=== PATIENT | female | born 1945 | race Caucasian/White ===

== ENCOUNTER 2018-06-03 21:48 | Emergency (ER) | payer OTHER, SELFPAY ==
[2018-06-03 22:04] VITALS: BP 168/78; PULSE 75; RESP 18; TEMP 36.8; O2SAT 99
--- NOTE | 2018-06-04 00:18 | ED.GENADUL_ITS ---
Discharge Plan Disposition Patient Disposition: HOME Condition: Good Discharge Details Chief Complaint: Orthopedic Clinical Impression: Injury of left shoulder Primary Care Provider: Sonal Nieto ED Provider: Vernon Titus [place] Meds and New Rx's Prescriptions: Continue metoprolol succinate 50 MG tablet extended release 24 hr 50 mg PO BID RF: 0 glipizide [Glucotrol XL] 10 MG tablet extended release 24hr 10 mg PO DAILY RF: 0 lysine 1,000 MG tablet 1,000 mg PO DAILY RF: 0 cranberry conc-ascorbic acid [Cranberry Concentrate] 1 EACH capsule 1 ea PO BID RF: 0 amlodipine 5 MG tablet 5 mg PO HS RF: 0 calcium carbonate-vitamin D3 1 EACH tablet 1 ea PO BID RF: 0 simvastatin 20 MG tablet 20 mg PO DAILY RF: 0 ascorbate calcium 500 MG tablet 500 mg PO TID RF: 0 losartan 100 MG tablet 100 mg PO HS RF: 0 cinnamon bark 500 MG capsule 500 mg PO DAILY RF: 0 nizxwzxv-zxe-WF-lycopen-lutein [Centrum Silver] 1 EACH tablet 1 ea PO DAILY RF: 0 Ca cmb no.1-vit Q8-P8-DI-B12 [Vitamin D3 (calcium cit-phos)] 1 EACH tablet 1 ea PO BID RF: 0 estradiol [Estrace] 42.5 GM cream 42.5 gm VG DAILY Qty: 1 RF: 12 latanoprost [Xalatan] 2.5 ML drops 1 drp Ophthalmic DAILY RF: 0 dorzolamide-timolol 10 ML drops 1 drp Ophthalmic BID RF: 0 vitamin B complex [B-Complex] 1 EACH tablet 1 ea PO DAILY RF: 0 cholecalciferol (vitamin D3) [Vitamin D3] 400 UNIT tablet 400 unit PO DAILY RF: 0 Discharge Instructions Additional Instructions: With a sling for comfort but start doing range of motion exercises within the next couple of days. Ice on and off of the next few days. Tylenol or Motrin as needed for pain. Follow-up with primary care next week if still having significant pain. Return to ED for numbness or weakness of the arm, difficulty breathing, other problems. Stand Alone Forms: Work Release Referrals: Sonal Nieto MD [Primary Care Provider] - Discharge Data Discharge Date/Time-TO BE ENTERED AT DEPARTURE: 06/04/18 01:49 Medical Decision Making Patient given Tylenol for pain. She declined anything else. X-ray of the left shoulder obtained. There is no evidence of fracture or dislocation. Possibility of rotator cuff injury to entertained. She is placed in sling for comfort. She is told to use ice on and off for the next few days. She may use Tylenol or Motrin for pain. She is referred to primary care if not better next week. Return to ED for any neurovascular changes. HPI General Mode of arrival: ambulatory . Date/Time Provider Initiated Documentation: 06/03/18 22:24 . Limitations to Documentation: no limitations . Information obtained by: patient . HPI Narrative: Patient presents to ED with left shoulder pain status post slip and fall while coming out of work. She did not strike her head. She has no posterior neck pain. She has a little bit of lateral neck pain. Most of her discomfort is in her left shoulder and she is unable to lift or move her arm well. She denies any numbness or weakness distally. She denies any chest pain , back pain, shortness of breath. She is ambulatory without difficulty. Related Data Home Medications Medication Instructions Recorded Confirmed Ca cmb no.1-vit V2-F8-HE-B12 1 ea PO BID 11/27/13 05/17/17 [Vitamin D3 (calcium cit-phos)] amlodipine 5 mg PO HS tab-cap 11/27/13 05/31/17 ascorbate calcium 500 mg PO TID 11/27/13 05/31/17 calcium carbonate-vitamin D3 1 ea PO BID 11/27/13 05/31/17 cinnamon bark 500 mg PO DAILY 11/27/13 05/31/17 cranberry conc-ascorbic acid 1 ea PO BID 11/27/13 05/31/17 [Cranberry Concentrate] estradiol [Estrace] 42.5 gm VG DAILY #1 tube 11/27/13 glipizide [Glucotrol XL] 10 mg PO DAILY tab-cap 11/27/13 05/31/17 losartan 100 mg PO HS tab-cap 11/27/13 05/31/17 lysine 1,000 mg PO DAILY 11/27/13 05/31/17 metoprolol succinate 50 mg PO BID tab-cap 11/27/13 05/31/17 simbmiow-lct-HE-lycopen-lutein 1 ea PO DAILY 11/27/13 05/31/17 [Centrum Silver] simvastatin 20 mg PO DAILY tab-cap 11/27/13 05/31/17 dorzolamide-timolol 1 drp OPHTHALMIC BID drp 05/18/16 05/31/17 latanoprost [Xalatan] 1 drp OPHTHALMIC DAILY drp 05/18/16 05/31/17 cholecalciferol (vitamin D3) 400 unit PO DAILY 05/14/17 05/31/17 [Vitamin D3] vitamin B complex [B-Complex] 1 ea PO DAILY 05/14/17 05/31/17 Allergies Allergy/AdvReac Type Severity Reaction Status Date / Time nifedipine [From Procardia] Allergy Intermediate rash Unverified 06/03/18 22:10 Penicillins Allergy Unverified 06/03/18 22:10 hydrochlorothiazide AdvReac peeling Unverified 06/03/18 22:10 [From Aldactazide] nipples potassium chloride AdvReac swelling Unverified 06/03/18 22:10 feet and ankles prednisone AdvReac phlebitis Unverified 06/03/18 22:10 spironolactone AdvReac peeling Unverified 06/03/18 22:10 [From Aldactazide] nipples General Stated Complaint: Orthopedic OLIVER: 4 Review of Systems Constitutional Denies headache(s) and Denies weakness ENT Denies facial pain, Denies headache(s), Denies epistaxis, Denies nasal trauma and Denies neck pain Cardiovascular Denies chest pain and Denies dyspnea Respiratory Denies dyspnea Gastrointestinal Denies nausea and Denies vomiting Musculoskeletal Denies back pain, Reports arthralgias, Denies neck pain and Denies numbness Integumentary/Breasts Denies wounds Neurologic Denies headache(s), Denies focal weakness, Denies numbness and Denies weakness [facility] Medical History ASCUS with positive high risk HPV Atrophic vaginitis Diabetes mellitus Essential hypertension Gout Hyperlipidemia Lichen sclerosus et atrophicus Social History Smoking/Tobacco Use Status: Never Surgical History Colonoscopy - IV Sedation Ligation of fallopian tube Tonsillectomy mastoidectomy varicose vein stripping Exam Const General: cooperative Orientation: alert and oriented x3 HENMT Head: normocephalic and atraumatic Neck Neck: normal visual inspection, trachea midline and supple Chest Chest: normal palpation of entire chest wall Resp Effort & Inspection: normal respiratory effort Auscultation: clear to auscultation bilaterally Cardio Rate: regular rate Rhythm: regular rhythm Heart Sounds: S1 normal and S2 normal Pulses: radial pulses present Back/Spine/Pelvis Cervical Spine: cervical ROM normal and No cervical spinal tenderness Neuro General: alert, oriented x3, CN's II-XI intact bilaterally and normal sensation to monofilament Sensory Exam: no sensory deficits noted Extrem Left upper extremity: normal to inspection, normal capillary refill and shoulder /upper arm Details: tenderness Location: of the proximal humerus and abnormal ROM Course Vital Signs Temperature 98.2 F 06/03/18 22:04 Pulse 75 06/03/18 22:04 Respiratory Rate 18 06/03/18 22:04 Blood Pressure 168/78 H 06/03/18 22:04 Pulse Oximetry 99 06/03/18 22:04 Temperature 98.2 F 06/03/18 22:04 Temperature Source Skin 06/03/18 22:04 Pulse 75 06/03/18 22:04 Respiratory Rate 18 06/03/18 22:04 Respiratory Effort Non-Labored 06/03/18 22:09 Blood Pressure 168/78 H 06/03/18 22:04 Blood Pressure Position Sitting 06/03/18 22:04 Pulse Oximetry 99 06/03/18 22:04 Oxygen Delivery Method Room Air 06/03/18 22:04 Oxygen Flow Rate 0 06/03/18 22:04 Pain Level 10 06/03/18 22:04 Comment 06/03/18 22:04
[2018-06-04] MEDS: Acetaminophen 500 MG TAB 1000 MG PO (00:19)
--- NOTE | 2018-06-04 00:45 | DI.RAD_ITS ---
SYMPTOMS/DIAGNOSIS: TRAUMA LEFT SHOULDER: No fracture or dislocation is seen. There is some spurring at the glenoid and tip of the acromion. IMPRESSION: Degenerative changes. No acute abnormality.
--- NOTE | 2018-06-04 01:11 | DI.VRAD_ITS ---
EXAM: XR Left Shoulder Complete, 2 or More Views CLINICAL HISTORY: 73 years old, female; Injury or trauma; Fall; Initial encounter; Blunt trauma (contusions or hematomas; Shoulder; Left; Injury date: 06/03/18; Injury details: Fall with left shoulder pain and limited range of motion. ; Additional info: Unable to do axillary view due to pain TECHNIQUE: Two or more views of the left shoulder. COMPARISON: No relevant prior studies available. FINDINGS: Bones/joints: Unremarkable. No acute fracture. No dislocation. Soft tissues: Unremarkable. IMPRESSION: Normal left shoulder x-rays. Dictated and Authenticated by: Martin Torres MD. Ordering:VISHAL ACOSTA MD
[2018-06-04 01:50] VITALS: BP 162/82; PULSE 85; RESP 16; O2SAT 97
== END 2018-06-04 01:49 | disposition home or self-care (01) ==
PROVIDERS: Emergency Provider Emergency Medicine; PCP Family Medicine
DX: S49.92XA Unspecified injury of left shoulder and upper arm, initial encounter (principal); W01.0XXA Fall on same level from slipping, tripping and stumbling without subsequent striking against object, initial encounter; E11.9 Type 2 diabetes mellitus without complications; Z79.84 Long term (current) use of oral hypoglycemic drugs; I10 Essential (primary) hypertension
CPT/HCPCS: 99283; 73030; L3650

== ENCOUNTER 2018-06-10 09:53 | Outpatient (CLI) | payer OTHER, SELFPAY ==
[2018-06-10 10:24] LABS: Hemoglobin A1C 7.9 % (4.5-6.2)
[2018-06-10 11:07] LABS: Anion Gap 9.4 mmol/L (3-11); BUN 16 mg/dL (7-18); CO2 29.6 mmol/L (21.0-32.0); CREATININE 0.77 mg/dL (0.55-1.02); Calcium 9.6 mg/dL (8.5-10.1); Chloride 100 mmol/L (98-107); Cholesterol 221 mg/dL (50-200); Glucose 194 mg/dL (70-100); HDL Cholesterol 63 mg/dL (40-60); LDL CHOLESTEROL 128 mg/dL (<100); Potassium 4.1 mmol/L (3.5-5.1); Sodium 139 mmol/L (136-145); Triglyceride 151 mg/dL (30-150)
== END 2018-06-10 10:13 ==
PROVIDERS: PCP Family Medicine; Visit Provider Family Medicine
DX: E11.9 Type 2 diabetes mellitus without complications (principal); E78.5 Hyperlipidemia, unspecified
CPT/HCPCS: 36415; 80048; 80061; 83721; 83036

== ENCOUNTER 2018-09-19 09:45 | Outpatient (REF) | payer OTHER, SELFPAY ==
[2018-09-19 13:28] LABS: Microalb ug/mg Crea 19.9 ug/mg Cr
== END 2018-09-19 10:05 ==
LOC: NCHCN 09:45
PROVIDERS: PCP Family Medicine; Visit Provider Family Medicine
DX: E11.9 Type 2 diabetes mellitus without complications (principal)
CPT/HCPCS: 82043; 82570

== ENCOUNTER 2018-10-03 08:58 | Outpatient (CLI) | payer OTHER, SELFPAY | END 2018-10-03 09:18 | PROVIDERS: PCP Family Medicine; Visit Provider Student in an Organized Health Care Education/Training Program | DX: S46.012A Strain of muscle(s) and tendon(s) of the rotator cuff of left shoulder, initial encounter (principal); M25.512 Pain in left shoulder; Z01.818 Encounter for other preprocedural examination ==

== ENCOUNTER 2018-10-07 08:12 | Day surgery (SDC) | payer OTHER, SELFPAY ==
[2018-10-07] VITALS (8 sets, daily range): BP systolic 93–151; BP diastolic 43–79; PULSE 62–82; RESP 15–23; TEMP 36.2–36.6; O2SAT 95–99
[2018-10-07] MEDS: Lactated Ringers 1,000 ML 80 ML IV ×2 (08:53→13:49)
[2018-10-07] MEDS: Bupivacaine LIPOSOME/PF 133 MG/10 ML VIAL IJ ×2 (09:50→12:57)
[2018-10-07] MEDS: Bupivacaine 0.5% Pres-Free 30 ML VIAL (09:50)
[2018-10-07] MEDS: Bupivacaine 0.25% Pres-Free 30 ML VIAL (12:58)
--- NOTE | 2018-10-07 13:10 | PDOC.DSDIS_ITS ---
Discharge Plan Disposition Patient Disposition: HOME Condition: Good Discharge Details Reason For Visit: L RTC Repair Attending Provider: Noah Palacios Primary Care Provider: Sonal Nieto Home Meds and New Rx's Prescriptions: New celecoxib 200 mg capsule 200 mg PO BID PRN (Reason: pain) Qty: 60 RF: 1 acetaminophen 500 mg tablet 1,000 mg PO Q8H PRN (Reason: pain) Qty: 90 RF: 3 oxycodone 5 mg tablet 5 mg PO Q4H Qty: 18 RF: 0 Continued metoprolol succinate 50 MG tablet extended release 24 hr 50 mg PO BID RF: 0 glipizide [Glucotrol XL] 10 MG tablet extended release 24hr 10 mg PO DAILY RF: 0 lysine 1,000 MG tablet 1,000 mg PO DAILY RF: 0 Cranberry Concentrate 1 EACH capsule 1 ea PO BID RF: 0 amlodipine 5 MG tablet 5 mg PO HS RF: 0 calcium carbonate-vitamin D3 1 EACH tablet 1 ea PO BID RF: 0 simvastatin 20 MG tablet 20 mg PO DAILY RF: 0 ascorbate calcium 500 MG tablet 500 mg PO TID RF: 0 losartan 100 MG tablet 100 mg PO HS RF: 0 cinnamon bark 500 MG capsule 500 mg PO DAILY RF: 0 Centrum Silver 1 EACH tablet 1 ea PO DAILY RF: 0 Vitamin D3 (calcium cit-phos) 1 EACH tablet 1 ea PO BID RF: 0 estradiol [Estrace] 42.5 GM cream 42.5 gm VG PRN PRNQty: 1 RF: 12 latanoprost [Xalatan] 2.5 ML drops 1 drp Ophthalmic DAILY RF: 0 dorzolamide-timolol 10 ML drops 1 drp Ophthalmic BID RF: 0 vitamin B complex [B-Complex] 1 EACH tablet 1 ea PO DAILY RF: 0 cholecalciferol (vitamin D3) [Vitamin D3] 400 UNIT tablet 400 unit PO DAILY RF: 0 Discharge Instructions Stand Alone Forms: Philip fitzpatrick/RCKrystle Referrals: Noah Palacios MD [ [facility] STAFF PHYSICIAN] - Equipment/Supplies: Sling Activity:: Stay in sling except for hygiene Remove Dressings/Wound Care:: 72 hours Shower/Bathe:: 72 hours Diet:: Carb Counting Discharge Orders Discharge Orders: Discharge Order (Routine); Ordered 10/07/18 Ordered By: Noah Palacios DS: Diagnosis Discharge Diagnosis (1) Tear of left rotator cuff: Status: Acute
[2018-10-07] MEDS: Insulin REGULAR-Human 100 UNITS/ML UNIT IV (13:46)
--- NOTE | 2018-10-09 08:39 | ROE_ITS ---
Date of service: 10/07/18 Time of Service: 13:34 Operative Note DATE OF PROCEDURE: 10/07/18 PRE-OP DIAGNOSIS: Left Rotator Cuff Tear POST-OP DIAGNOSIS: same PROCEDURE: Arthroscopic Rotator Cuff Repair SURGEON: Noah Palacios [employer] ADMINISTRATOR: Christine Suggs ANESTHESIA: GETA and regional ESTIMATED BLOOD LOSS: 0 PATHOLOGY: none sent COMPLICATIONS: None Patient was transported to: PACU Patient's condition: stable Indications: I have seen Mildred in clinic for a painful shoulder. Pathology was confirmed based on MRI and exam findings. Nonoperative measures were exhausted but disability and pain persisted. I discussed shoulder arthroscopy and procedures. I reviewed the risks of the procedures to include, but not limited to, bleeding, infection, pain, stiffness, damage to nerves or vessels, recurrence, hardware failure, blood clot. Despite these risks, the patient elected to proceed. Findings: A diagnostic arthroscopy was performed with the following findings: - Glenohumeral Joint: There is a focal arthritic changes especially seen within the central posterior portion of the humeral head and within the central portion of the glenoid. There are quite focal grade 2/3 changes with no exposed bone. In general the joint was very difficult to maneuver and is there is severe inflammatory change seen throughout the entirety of the glenohumeral joint hiding and masking the normal anatomy. - Labrum: Some fraying of the labrum was seen from anterior posterior approximately 1030-30. The biceps was not present in the anchor was therefore not evaluated. - Cuff: Complete tearing of the supraspinatus and a portion of infraspinatus was appreciated. The inferior aspect the subscapularis still attached. The coracohumeral ligament and the upper portion of subscapularis was retracted medial to the glenoid and encased inflammatory tissue. - Biceps: There is no biceps within the glenohumeral joint. - Subacromial: Significant inflammation without significant anterolateral spurring Procedure Description: Mildred was greeted in the preoperative holding area where the correct side was identified and marked. The consent was reviewed with the patient and signed. The history and physical was updated. All questions were answered. Mildred was taken back to the PACU for administration of an intrascalene nerve block. She was then taken to the operating room. The patient was placed into the supine position on the operating room table. A general anesthetic was administered. Mildred was then positioned in the beach chair position. All bony prominences were well padded. The head was placed in a foam chiseler head in a neutral position. Prophylactic antibiotics in the form of [Cefazolin] were administered. The left arm/shoulder was then prepped with Chloraprep and draped in a standard fashion with stockinette and shoulder drape. A timeout to confirm correct identity, side and site, procedure, allergies, anesthesia, and medical concerns was performed. The arm was placed into a pneumatic azar, [id number]. The shoulder arthroscopy was then performed. The glenohumeral joint was injected with 20 cc of normal saline with good flow back. A standard posterior portal was made and the joint was entered atraumatically with a blunt arthroscope. Once inside we had good visualization of the structures of the glenohumeral joint. An anterior portal was established with spinal needle localization. A 6.5 mm cannula was inserted. A probe was then used to perform a diagnostic arthroscopy. There is noted to be some areas of focal grade 2/3 changes of the central glenoid and the central posterior portion of the humeral head. The labrum was frayed from about 1030-230 but was grossly intact. There were [no loose bodies] in the inferior pouch. The superior rotator cuff was completely torn and retracted just medial to the level of the glenoid including portion of the infra spinatus. The subscapularis is difficult to appreciate. The entire rotator interval was inflamed and scarred. The coracohumeral ligament was seen as a tight band which was able to identify the upper portion of subscapularis with difficulty. The lower portion was still attached.. The biceps tendon appears a torn and was not present. The labrum was debrided down to stable base. The inflammatory changes seen anteriorly within the rotator interval and also superiorly around the rotator cuff and over the greater tuberosity was debrided down. The arthroscope was then inserted into the subacromial space. The 6.5 mm cannula was placed lateral to the CA ligament. A complete bursectomy is performed anteriorly, posteriorly, and laterally with electrocautery and shaver. This had excellent exposure of the greater tuberosity and the torn superior rotator cuff. Using a spinal needle two lateral portals were established. These became the working and viewing portals. The visualization of the subscapularis tendon was still quite difficult. With the scope in the lateral portal was able to get better visualization of the scarred and subscapularis tendon. The coracohumeral ligament was identified to help find the upper portion of subscapularis tendon. Using a tissue grasper, this tissue was able to mobilize in the upper portion of subscapularis tendon was better identified. The inferior portions were still attached. The mobility is quite limited. I used both the shaver and a liberator to free up the subscapularis tendon both anteriorly and posteriorly. I placed a single 4.5 mm Healix anchor into the lesser tuberosity after debriding the lesser tuberosity. I placed a tension suture into the subscapularis tendon. This allowed the tendon to be pulled all the way to the lesser tuberosity. I was able to place a single horizontal mattress suture within the substance of the subscapularis tendon using a retrograde suture passer device, espresso. This was able to nicely bring back the subfibular stent into the less tuberosity which in turn also help reduce some of the superior rotator cuff. Unfortunately, I seemed to run out of space within the tendon and I was nervous about locking the sutures and therefore did not place a secondary suture and left one horizontal mattress suture. This was then tied through the anterior portal using standard arthroscopic knot tying techniques, again with excellent reapproximation of the tendon to the lesser tuberosity. It was tested up to 45 degrees of external rotation and was noted to be stable. Attention was then turned to the superior rotator cuff. Again, this was scarred and quite adherent both to the acromion and also to the superior glenoid area. Using light cautery, shaver, and a liberator, I was able to free up the tendon. It was mobile to the level of the greater tuberosity. However, it was unable to be brought all the way over the tuberosity. Therefore I proceeded with a medial row only repair. 2 Medial Row anchors were placed. These were 4.5 mm Healix anchors. [address] in [address] within the tendon of the rotator cuff, primarily supra spinatus and a portion of the infra spinatus. The tendon was brought from posterior to anterior direction and laid onto the greater tuberosity. Again, the tendon was brought to the tuberosity but was unable to be brought all the way over the tuberosity. Prior to placing those anchors the greater tuberosity was debrided with a shaver and slightly medialized. After placement of the mattress sutures, these were tied using standard arthroscopic knot tying techniques. Showed excellent reapproximation of the tendon down to the tuberosity. The scope equipment was removed from the shoulder. Excess fluid was evacuated. The portal sites were closed with 3-0 Monocryl. The wounds were dressed with Steri-Strips, 4 x 4's, ABDs, Medipore tape. A sling was applied. The patient tolerated the procedure well and was returned to the Same Day Surgery area in a stable condition suffering no known complication.
== END 2018-10-07 16:30 | disposition home or self-care (01) ==
PROVIDERS: PCP Family Medicine; Visit Provider Student in an Organized Health Care Education/Training Program
PROC: (CPT 29827; principal; 2018-10-07 09:45)
DX: M75.122 Complete rotator cuff tear or rupture of left shoulder, not specified as traumatic (principal); M19.012 Primary osteoarthritis, left shoulder; E11.9 Type 2 diabetes mellitus without complications; K21.9 Gastro-esophageal reflux disease without esophagitis
CPT/HCPCS: 29827; 64415; 76942; J2250; L3670

== ENCOUNTER → 2018-10-20 09:51 | Outpatient (BNVA) | payer OTHER, SELFPAY | PROVIDERS: PCP Family Medicine; Referring Provider Family Medicine; Visit Provider Student in an Organized Health Care Education/Training Program | DX: Z47.89 Encounter for other orthopedic aftercare (principal); M75.102 Unspecified rotator cuff tear or rupture of left shoulder, not specified as traumatic ==

== ENCOUNTER → 2018-11-17 10:27 | Outpatient (BNVA) | payer OTHER, SELFPAY | PROVIDERS: PCP Family Medicine; Referring Provider Family Medicine; Visit Provider Student in an Organized Health Care Education/Training Program | DX: R69 Illness, unspecified (principal) ==

== ENCOUNTER → 2018-12-15 14:25 | Outpatient (BNVA) | payer OTHER, SELFPAY | PROVIDERS: PCP Family Medicine; Referring Provider Family Medicine; Visit Provider Student in an Organized Health Care Education/Training Program | DX: M75.122 Complete rotator cuff tear or rupture of left shoulder, not specified as traumatic (principal); Z47.89 Encounter for other orthopedic aftercare ==

== ENCOUNTER 2019-01-12 10:21 | Outpatient (CLI) | payer OTHER, SELFPAY ==
--- NOTE | 2019-01-12 10:07 | DI.RAD_ITS ---
SYMPTOM/DIAGNOSIS: F/U LT ROTATOR CUFF TEAR, CONTINUED WEAKNESS LEFT SHOULDER: Three views were obtained. There are moderate hypertrophic degenerative changes of the AC joint and glenohumeral joint. No other significant bony or soft tissue abnormality is seen.
== END 2019-01-12 10:41 ==
PROVIDERS: PCP Family Medicine; Visit Provider Student in an Organized Health Care Education/Training Program
DX: M75.122 Complete rotator cuff tear or rupture of left shoulder, not specified as traumatic (principal); M19.012 Primary osteoarthritis, left shoulder
CPT/HCPCS: 73030

== ENCOUNTER 2019-07-02 02:17 | Outpatient (CLI) | payer OTHER, SELFPAY ==
--- NOTE | 2019-07-02 10:26 | DI.MAMMO_ITS ---
EXAM: MG MAMMO SCREENING CLINICAL HISTORY: SCREENING BREAST CANCER Z12.39 TECHNIQUE: Bilateral full field digital CC and MLO mammographic images were obtained with 3D tomosyn thesis and utilizing computer aided detection (CAD). COMPARISON: Available for comparison. FINDINGS: Masses/Architectural Distortion: None seen. Microcalcifications: No suspicious pleomorphic-type are seen. Skin Thickening/Nipple Retraction: None. IMPRESSION: 1. No significant interval change with no specific features of malignancy noted. 2. Unless there is more urgent need, screening mammography is recommended, as per [place] [employer] guidelines. ACR BI-RAD Category- 1 Negative Breast Density - Category B - Scattered areas of fibroglandular density A negative radiographic report should not delay biopsy if a dominant or clinically suspicious mass is present. Up to ten percent of cancers are not identified on mammography. A negative report may reinforce clinical impression. Adenosis and dense breasts may obscure an underlying neoplasm. False positive reports average 6 to 10%. Patient will receive a letter notifying them of these results.
== END 2019-07-02 02:37 ==
PROVIDERS: PCP Family Medicine; Visit Provider Family Medicine
DX: Z12.31 Encounter for screening mammogram for malignant neoplasm of breast (principal)
CPT/HCPCS: 77063; 77067

== ENCOUNTER 2020-08-19 15:42 | Outpatient (REF) | payer OTHER, SELFPAY ==
[2020-08-22 13:10] LABS: HSV 1 DNA Result Positive (Negative); HSV 2 DNA Result Negative (Negative)
== END 2020-08-19 16:02 ==
LOC: LBN 15:42
PROVIDERS: PCP Family Medicine; Visit Provider Obstetrics & Gynecology Gynecology
DX: N90.89 Other specified noninflammatory disorders of vulva and perineum (principal)
CPT/HCPCS: 87529

== ENCOUNTER 2020-10-21 15:16 | Outpatient (REF) | payer OTHER, SELFPAY ==
[2020-10-24 15:46] LABS: Chlamydia Result Negative (Negative); GC Result Negative (Negative)
== END 2020-10-21 15:17 | disposition home or self-care (01) ==
LOC: LBN 15:16
PROVIDERS: PCP Family Medicine; Visit Provider Obstetrics & Gynecology Gynecology
DX: N94.89 Other specified conditions associated with female genital organs and menstrual cycle (principal); Z11.3 Encounter for screening for infections with a predominantly sexual mode of transmission
CPT/HCPCS: 87491; 87591; 87480; 87510; 87660

== ENCOUNTER 2021-01-04 16:18 | Outpatient (REF) | payer OTHER, SELFPAY ==
--- NOTE | 2021-01-04 13:45 | PAPFT_PTH ---
PATIENT: Mildred Hill LOC: [facility]#:[id number] AGE/SX: 75/F ROOM: RE01/04/[address]: Sonal Nieto : 1945 BED: DIS: 01/04/2021 SPEC #: [id number] RECD: 01/04/21 17:59 STATUS: GAYLE REJose #: [id number] URIEL: 01/04/21 13:[address]: Sonal Nieto DEPT: [facility] Cytology RECD BY: Rosalva Jaquez Tissues: 1 - CX/ENDOCX FOR PAP SMEARS Procedures: PAP THIN PREP/UVM Screening HPV DNA PROBE Comments: [id number]
[2021-01-04 18:32] LABS: HCT 41.2 % (36.0-46.0); HGB 13.8 g/dL (11.2-15.7); MCH 30.7 pg (27.0-33.0); MCHC 33.5 % (32.0-36.0); MCV 91.6 fL (80-95); MPV 11.4 fL (8.0-11.0); Platelet Count 234 10^3/uL (130-400); WBC 6.16 10^3/uL (4.4-10.8)
[2021-01-04 18:44] LABS: Hemoglobin A1C 11.8 % (<5.7)
[2021-01-04 18:57] LABS: ALT 18 U/L (14-59); AST 10 U/L (15-37); Albumin 3.8 g/dL (3.4-5.0); Alkaline Phosphatase 70 U/L (46-116); Anion Gap 9.4 mmol/L (3-11); BUN 16 mg/dL (7-18); Bilirubin, Total 0.5 mg/dL (0.2-1.0); CO2 28.6 mmol/L (21.0-32.0); CREATININE 0.8 mg/dL (0.55-1.02); Calcium 9.5 mg/dL (8.5-10.1); Calculated LDL 77 mg/dL (<100); Chloride 99 mmol/L (98-107); Cholesterol 211 mg/dL (<200); Glucose 330 mg/dL (74-106); HDL Cholesterol 65 mg/dL (40-60); Potassium 4.2 mmol/L (3.5-5.1); Sodium 137 mmol/L (136-145); TSH (W/Ref FT4) 0.79 uIU/mL (0.36-3.74); Total Protein 7.5 g/dL (6.4-8.2); Triglyceride 349 mg/dL (<150)
== END 2021-01-04 16:19 | disposition home or self-care (01) ==
LOC: NCHCN 16:18
PROVIDERS: PCP Family Medicine; Visit Provider Family Medicine
DX: I10 Essential (primary) hypertension (principal); E11.65 Type 2 diabetes mellitus with hyperglycemia; E78.5 Hyperlipidemia, unspecified; M10.9 Gout, unspecified; Z12.4 Encounter for screening for malignant neoplasm of cervix; Z11.51 Encounter for screening for human papillomavirus (HPV)
CPT/HCPCS: 80053; 80061; 85027; 88142; 83036; 84443; 84550; 87624

== ENCOUNTER 2021-01-30 11:27 | Outpatient (REF) | payer OTHER, SELFPAY ==
[2021-01-30 16:05] LABS: Bilirubin Negative (Negative); Blood Trace-intact (Negative); Clarity Clear (Clear); Glucose >=1000 mg/dL (Negative); Ketones Negative (Negative); Leukocyte Esterase Trace (Negative); Nitrite Positive (Negative); Specific Gravity 1.015 (1.005-1.025); Urobilinogen 0.2 EU/dL (Up TO 0.2); pH 6.5 (5-8)
[2021-01-30 16:14] LABS: Epithelial Cells Rare HPF (Negative); RBC 0-2 HPF (0-2)
[2021-01-30 16:15] LABS: Bacteria Negative HPF (Negative); C & S Indicated? Yes; Casts Negative LPF (Negative); Crystals Negative HPF (Negative); Mucus Negative (Negative)
[2021-01-30 16:48] LABS: COMMENT (LAB VIEW ONLY) 18.87 mg/dL
== END 2021-01-30 11:28 | disposition home or self-care (01) ==
LOC: NCHCN 11:27
PROVIDERS: PCP Family Medicine; Visit Provider Family Medicine
DX: E11.65 Type 2 diabetes mellitus with hyperglycemia (principal); R35.0 Frequency of micturition
CPT/HCPCS: 87077; 81003; 81015; 82043; 82570; 87086; 87186

== ENCOUNTER 2021-02-07 01:59 | Outpatient (CLI) | payer OTHER, SELFPAY ==
--- NOTE | 2021-02-07 11:35 | DI.MAMMO_ITS ---
Exam(s) MAMMO SCREENING EXAM: MAMMO SCREENING CLINICAL HISTORY: SCREENING, Z12.39 TECHNIQUE: Mammograms were interpreted according to the usual protocol including computer analysis w [email or web address] CAD system, tomosynthesis and C-view imaging. COMPARISON: FINDINGS: The breasts are of moderate density with fairly symmetrical distribution of fibroglandular tissue wit h of focal area asymmetric fibroglandular tissue in the upper outer quadrant of the left breast, unch anged from prior studies including June 2019 and April 2017. No dominant mass or clumped microcalcification is seen. No change in appearance of either breast in comparison with previous examinations. IMPRESSION: No specific evidence of malignancy at this time. Routine screening examinations are suggested at yea rly intervals in this age group according to the ACS ACR guidelines. BI-RADS Category 1 - Negative Breast Density - Category B - Scattered areas of fibroglandular density
== END 2021-02-07 02:19 ==
PROVIDERS: PCP Family Medicine; Visit Provider Family Medicine
DX: Z12.31 Encounter for screening mammogram for malignant neoplasm of breast (principal); R92.8 Other abnormal and inconclusive findings on diagnostic imaging of breast
CPT/HCPCS: 77063; 77067

== ENCOUNTER 2021-10-17 15:45 | Outpatient (REF) | payer OTHER, SELFPAY ==
[2021-10-17 21:15] LABS: Bilirubin Negative (Negative); Blood Negative (Negative); Clarity Clear (Clear); Glucose 500 mg/dL (Negative); Ketones Trace mg/dL (Negative); Leukocyte Esterase Negative (Negative); Nitrite Negative (Negative); Urobilinogen 0.2 EU/dL (Up TO 0.2); pH 5.5 (5-8)
== END 2021-10-17 15:46 | disposition home or self-care (01) ==
LOC: LBN 15:45
PROVIDERS: PCP Family Medicine; Visit Provider Physician Assistant
DX: R39.9 Unspecified symptoms and signs involving the genitourinary system (principal)
CPT/HCPCS: 81003

== ENCOUNTER 2022-01-11 17:48 | Outpatient (REF) | payer MEDICARE, SELFPAY | END 2022-01-11 17:49 | disposition home or self-care (01) | LOC: LBN 17:48 | PROVIDERS: PCP Family Medicine; Visit Provider Physician Assistant Medical | DX: R35.0 Frequency of micturition (principal) | CPT/HCPCS: 87077; 87086; 87186 ==

== ENCOUNTER → 2022-01-19 10:08 | Outpatient (BNVA) | payer MEDICARE, SELFPAY | PROVIDERS: PCP Family Medicine; Referring Provider Physician Assistant Medical; Visit Provider Physical Therapy Assistant | DX: I10 Essential (primary) hypertension (principal); L02.31 Cutaneous abscess of buttock; E11.65 Type 2 diabetes mellitus with hyperglycemia | CPT/HCPCS: 99214 ==

== ENCOUNTER 2022-01-23 02:27 | Outpatient (CLI) | payer MEDICARE, SELFPAY ==
[2022-01-23 12:57] LABS: Abs Immature Grans 0.02 10^3/uL (0.0-0.06); Absolute Basophil Count 0.03 10^3/uL (0.0-0.2); Absolute Eosinophil Count 0.07 10^3/uL (0.0-0.7); Absolute Lymphocyte Count 1.47 10^3/uL (1.2-3.4); Absolute Neutrophil Count 3.58 10^3/uL (1.2-6.7); Basophils % 0.5; Eosinophils % 1.3; HCT 41.9 % (36.0-46.0); HGB 13.9 g/dL (11.2-15.7); Immature Grans % 0.4; Lymphocytes % 26.4; MCH 29.8 pg (27.0-33.0); MCHC 33.2 % (32.0-36.0); MCV 90 fL (80-95); MPV 10.3 fL (8.0-11.0); Monocytes % 7.2; Neutrophils % 64.2; Platelet Count 323 10^3/uL (130-400); RBC 4.67 10^6/uL (3.93-5.22); RDW 11.9 % (11.7-14.6); RDW-SD 38.5 fL; WBC 5.57 10^3/uL (4.4-10.8)
[2022-01-23 13:22] LABS: ALT 28 U/L (14-59); AST 11 U/L (15-37); Albumin 3.7 g/dL (3.4-5.0); Alkaline Phosphatase 62 U/L (46-116); Anion Gap 8.7 mmol/L (3-11); BUN 23 mg/dL (7-18); Bilirubin, Total 0.7 mg/dL (0.2-1.0); CO2 30.3 mmol/L (21.0-32.0); CREATININE 0.9 mg/dL (0.55-1.02); Calcium 9.5 mg/dL (8.5-10.1); Chloride 94 mmol/L (98-107); Glucose 414 mg/dL (74-106); Potassium 4.1 mmol/L (3.5-5.1); Sodium 133 mmol/L (136-145); Total Protein 7.7 g/dL (6.4-8.2)
== END 2022-01-23 02:28 | disposition home or self-care (01) ==
LOC: LBO 02:27
PROVIDERS: PCP Family Medicine; Visit Provider Physical Therapy Assistant
DX: E11.65 Type 2 diabetes mellitus with hyperglycemia (principal); L02.31 Cutaneous abscess of buttock
CPT/HCPCS: 36415; 80053; 83036; 85025

== ENCOUNTER → 2022-01-25 14:37 | Outpatient (BNVA) | payer MEDICARE, SELFPAY | PROVIDERS: PCP Family Medicine; Referring Provider Family Medicine; Visit Provider Physical Therapy Assistant | DX: L02.31 Cutaneous abscess of buttock (principal) | CPT/HCPCS: 99213 ==

== ENCOUNTER 2022-02-02 14:21 | Outpatient (REF) | payer MEDICARE, SELFPAY ==
[2022-02-02 18:51] LABS: COMMENT (LAB VIEW ONLY) 23.84 mg/dL; Microalb ug/mg Crea 44.5 ug/mg Cr
== END 2022-02-02 14:22 | disposition home or self-care (01) ==
LOC: NCHCN 14:21
PROVIDERS: PCP Family Medicine; Visit Provider Family Medicine
DX: E11.65 Type 2 diabetes mellitus with hyperglycemia (principal)
CPT/HCPCS: 82043; 82570

== ENCOUNTER → 2022-02-08 11:22 | Outpatient (BNVA) | payer MEDICARE, SELFPAY | PROVIDERS: PCP Family Medicine; Referring Provider Family Medicine; Visit Provider Physical Therapy Assistant | DX: L02.31 Cutaneous abscess of buttock (principal); E11.65 Type 2 diabetes mellitus with hyperglycemia | CPT/HCPCS: 99213 ==

== ENCOUNTER → 2022-02-19 09:49 | Outpatient (BNVA) | payer MEDICARE, SELFPAY | PROVIDERS: PCP Family Medicine; Referring Provider Family Medicine; Visit Provider Physical Therapy Assistant | DX: L02.31 Cutaneous abscess of buttock (principal); E11.65 Type 2 diabetes mellitus with hyperglycemia | CPT/HCPCS: 99213 ==

== ENCOUNTER → 2022-03-01 10:51 | Outpatient (BNVA) | payer MEDICARE, SELFPAY | PROVIDERS: PCP Family Medicine; Referring Provider Family Medicine; Visit Provider Physical Therapy Assistant | DX: L02.31 Cutaneous abscess of buttock (principal); E11.65 Type 2 diabetes mellitus with hyperglycemia | CPT/HCPCS: 99213 ==

== ENCOUNTER 2022-06-04 17:48 | Outpatient (REF) | payer MEDICARE, SELFPAY ==
[2022-06-06 10:13] LABS: Hepatitis C Ab w Rflx HCV PCR Negative (Negative)
[2022-06-06 10:27] LABS: HIV-1/2 Ag & Ab Screen Negative (Negative)
[2022-06-06 10:31] LABS: Syphilis Serology (RPR) Negative (Negative)
[2022-06-07 08:23] LABS: Chlamydia Result Negative (Negative); GC Result Negative (Negative)
== END 2022-06-04 17:49 | disposition home or self-care (01) ==
LOC: NCHCN 17:48
PROVIDERS: PCP Family Medicine; Visit Provider Family Medicine
DX: Z20.2 Contact with and (suspected) exposure to infections with a predominantly sexual mode of transmission (principal); Z11.59 Encounter for screening for other viral diseases; Z11.4 Encounter for screening for human immunodeficiency virus [HIV]; A64 Unspecified sexually transmitted disease
CPT/HCPCS: 86803; 87389; 87491; 87591; 86592

== ENCOUNTER → 2022-06-15 09:10 | Outpatient (BNVA) | payer MEDICARE, SELFPAY | PROVIDERS: PCP Family Medicine; Referring Provider Family Medicine; Visit Provider Surgery | DX: L02.31 Cutaneous abscess of buttock (principal) | CPT/HCPCS: 99213 ==

== ENCOUNTER 2022-06-27 10:57 | Outpatient (REF) | payer MEDICARE, SELFPAY ==
--- NOTE | 2022-06-27 10:30 | SKI_PTH ---
PAT[facility]: Mildred Hill [id number] AGE/SX: 77/F ROOM: RE06/27/[address]: Sonal Nieto : 1945 BED: DIS: 06/27/2022 SPEC #: [id number] RECD: 06/27/22 18:25 STATUS: GAYLE DOBBINS #: [id number] URIEL: 06/27/22 10:[address]: Sonal Nieto DEPT: Surgical Specimen RECD BY: Rosalva Jaquez Tissues: 1 - SKIN BIOPSY(SHAVE/PUNCH) Procedures: SKIN LEVEL 4 Comments: [id number]
== END 2022-06-27 10:58 | disposition home or self-care (01) ==
LOC: NCHCN 10:57
PROVIDERS: PCP Family Medicine; Visit Provider Family Medicine
DX: B07.8 Other viral warts (principal)
CPT/HCPCS: 88305

== ENCOUNTER 2022-08-25 06:32 | Emergency (ER) | payer MEDICARE, SELFPAY ==
[2022-08-25] VITALS (16 sets, daily range): BP systolic 118–166; BP diastolic 68–104; PULSE 92–150; RESP 16–24; TEMP 36.6; O2SAT 91–98
--- NOTE | 2022-08-25 06:30 | RT.EKG_ITS ---
APPROVED REPORT Exam: Resting ECG Reason for Exam: short of breath Patient Location: E HR:137 bpm ECG Measurements Heart Rate 137 AXIS [place] [id number] P [id number] QRSd 81 QRS 95 QT 319 T [id number] QTc 483 Conclusion Atrial fibrillation...V-rate 84-160, irreg A-activity Ventricular premature complex...V complex w/ short R-R interval Right axis deviation...QRS axis ( 91,269) Repolarization abnormality, prob rate related...ST dep, T neg, tachycardia Physician: afib with rvr, minimal lateral depression, no stemi
--- NOTE | 2022-08-25 06:45 | DI.RAD_ITS ---
Exam(s) XR PORTABLE CHEST AP EXAM: XR PORTABLE CHEST AP CLINICAL HISTORY: sob, afib TECHNIQUE: 2D digital imaging was performed of the chest. One image was obtained. An AP view was ob tained. COMPARISON: CR XR shoulder LT complete 2+V from 06/04/2018 FINDINGS: MEDIASTINUM: Normal. HEART: Heart is at the upper limits of normal to mildly enlarged. PULMONARY VASCULATURE: There is mild prominence of the pulmonary vasculature and interstitium. This may represent pulmonary edema. LUNGS: No focal consolidating infiltrates. PLEURAL SPACE: No pleural effusion or pneumothorax. BONE:Within normal limits for the patient's age. OTHER FINDINGS:Normal. IMPRESSION: Findings suspicious for pulmonary edema. Please correlate clinically. No focal consolidating infilt rates. DATA REPOSITORY: RADIATION DOSE DELIVERED:
[2022-08-25 07:02] LABS: Abs Immature Grans 0.02 10^3/uL (0.0-0.06); Absolute Basophil Count 0.02 10^3/uL (0.0-0.2); Absolute Eosinophil Count 0.14 10^3/uL (0.0-0.7); Absolute Lymphocyte Count 1.97 10^3/uL (1.2-3.4); Absolute Monocyte Count 0.28 10^3/uL (0.1-0.8); Absolute Neutrophil Count 4.33 10^3/uL (1.2-6.7); Basophils % 0.3; Eosinophils % 2.1; HCT 44.1 % (36.0-46.0); HGB 14.3 g/dL (11.2-15.7); Immature Grans % 0.3; Lymphocytes % 29.1; MCH 29.8 pg (27.0-33.0); MCHC 32.4 % (32.0-36.0); MCV 92 fL (80-95); MPV 10.1 fL (8.0-11.0); Monocytes % 4.1; Neutrophils % 64.1; Platelet Count 351 10^3/uL (130-400); RDW 11.9 % (11.7-14.6); RDW-SD 40.3 fL; WBC 6.76 10^3/uL (4.4-10.8)
--- NOTE | 2022-08-25 07:05 | ED.GENADUL_ITS ---
Discharge Plan Discharge Details Chief Complaint: RespSymp Clinical Impression: Atrial fibrillation with rapid ventricular response Primary Care Provider: Sonal Nieto ED Provider: Oniel Lopez Home Meds and New Rx's Prescriptions: No Action insulin glargine [Lantus Solostar U-100 Insulin] 100 unit/mL (3 mL) insulin pen 27 unit subcut QHS valacyclovir [Valtrex] 500 mg tablet 500 mg PO BID Qty: 20 1RF metoprolol succinate 50 mg tablet extended release 24 hr 50 mg PO BID estradiol 0.01 % (0.1 mg/gram) cream 1 g VG .twice a week valsartan 320 mg tablet 320 mg PO DAILY simvastatin 20 mg tablet 20 mg PO QPM lysine 1,000 MG tablet 1,000 mg PO DAILY Cranberry Concentrate 1 EACH capsule 1 ea PO BID Label Comments: BID amlodipine 5 MG tablet 5 mg PO HS calcium carbonate-vitamin D3 1 EACH tablet 1 ea PO BID Centrum Silver 1 EACH tablet 1 ea PO DAILY dorzolamide-timolol 10 ML drops 1 drp Ophthalmic BID glipizide [Glucotrol XL] 10 mg tablet extended release 24hr 10 mg PO BID clobetasol-emollient 0.05 % cream 1 applic TP .COMPLEX Qty: 45 5RF Rx Instructions: apply tiny amount to vulva daily for 2w, then twice weekly ascorbate calcium (vitamin C) 500 mg tablet 1 g PO BID Label Comments: BID cinnamon bark 500 mg capsule 500 mg PO BID Label Comments: BID latanoprost [Xalatan] 0.005 % drops 1 drp Ophthalmic QHS Label Comments: one drop in each eye Azo Bladder Control 300 mg capsule PO BID vitamin B complex [B-Complex] Tablet 1 tab PO QPM Label Comments: at suppertime acetaminophen 500 mg tablet 1,000 mg PO Q8H PRN (Reason: pain) Qty: 90 3RF cholecalciferol (vitamin D3) [Vitamin D3] 10 mcg (400 unit) tablet 2,000 unit PO BID Medical Decision Making 77-year-old female with a past medical history of hypertension, diabetes, vaginal estrogen cream, presents today for shortness of breath. Patient states that she was having early interventionist intercourse with her significant other when preclimax she developed shortness of breath. She had no chest pain. She finished the escapade with her partner, and was still short breath. She came to the ER for further assessment. She denies any new arm or neck pain. She denies any heavy weight on her chest. She denies any history of cardiac disease blood clots or stroke. No history of stroke or heart attacks in first-degree relatives. She does not smoke. She does admit to a significant amount of social stress recently, but denies any other components. No new medications. No other complaints at this time. Exam demonstrates well-appearing female, heart rate is in the 150s, blood press ure is hypertensive. EKG shows evidence of atrial fibrillation with a rapid ventricular response. I suspect that this is the cause of her symptomatology. Uncertain as to why developed now. We will gently rehydrate, give metoprolol dosings, monitor closely and reassess. 1:44 AM Patient's heart rate has notably improved with 5 mg of IV metoprolol. Laboratory work-up is returning. Electrolytes appear to be stable, troponin is elevated at 250, proBNP is elevated at 3000. Thyroid function normal. Still pending repeat troponin, urinalysis and chest x-ray. 325 mg aspirin has been given. We will continue to monitor the patient's heart rate. She will likely need admission for echo and troponin trending. Patient will be signed out to my colleague Dr. Sriram Oquendo for follow-up on labs and imaging. HPI General Date/Time Provider Initiated Documentation: 08/25/22 06:37 . HPI Narrative: 77-year-old female with a past medical history of hypertension, diabetes, vaginal estrogen cream, presents today for shortness of breath. Patient states that she was having early interventionist intercourse with her significant other when preclimax she developed shortness of breath. She had no chest pain. She finished the escapade with her partner, and was still short breath. She came to the ER for further assessment. She denies any new arm or neck pain. She denies any heavy weight on her chest. She denies any history of cardiac disease blood clots or stroke. No history of stroke or heart attacks in first-degree relatives. She does not smoke. She does admit to a significant amount of social stress recently, but denies any other components. No new medications. No other complaints at this time. Related Data Home Medications Medication Instructions Recorded Confirmed amlodipine 5 mg tablet 5 mg PO HS 11/27/13 06/15/22 calcium carbonate 600 mg-vitamin 1 ea PO BID 11/27/13 06/15/22 D3 5 mcg (200 unit) tablet cranberry concentrate-ascorbic 1 ea PO BID 11/27/13 06/15/22 acid 140 mg-100 mg capsule (Cranberry Concentrate) lysine 1,000 mg tablet 1,000 mg PO DAILY 11/27/13 06/15/22 [id number]-peedt acid 0.4 1 ea PO DAILY 11/27/13 06/15/22 mg-lycopene 300 mcg-lutein 250 mcg tablet (Centrum Silver) dorzolamide 22.3 mg-timolol 6.8 1 drp ophthalmic (eye) BID 05/18/16 06/15/22 mg/mL eye drops acetaminophen 500 mg tablet 1,000 mg PO Q8H PRN pain #90 tabs 10/07/18 06/15/22 glipizide 10 mg tablet, extended 10 mg PO BID 02/21/21 06/15/22 release 24 hr (Glucotrol XL) clobetasol-emollient 0.05 % 1 applic topical .COMPLEX #45 grams 11/06/2106/15 topical cream metoprolol succinate 50 mg 50 mg PO BID 01/25/22 06/15/22 tablet,extended release 24 hr valacyclovir 500 mg tablet 500 mg PO BID #20 tabs 02/21/22 06/15/22 (Valtrex) ascorbate calcium (vitamin C) 500 1 g PO BID 03/08/22 06/15/22 mg tablet cholecalciferol (vitamin D3) 10 2,000 unit PO BID 03/08/22 06/15/22 mcg (400 unit) tablet (Vitamin D3) cinnamon bark 500 mg capsule 500 mg PO BID 03/08/22 06/15/22 estradiol 0.01% (0.1 mg/gram) 1 g vaginal .twice a week 03/08/22 06/15/22 vaginal cream insulin glargine 100 unit/mL (3 27 unit subcut QHS 03/08/22 06/15/22 mL) subcutaneous pen (Lantus Solostar U-100 Insulin) latanoprost 0.005 % eye drops 1 drp ophthalmic (eye) QHS 03/08/22 06/15/22 (Xalatan) pumpkin seed extract-soy germ 300 cap PO BID 03/08/22 06/15/22 mg capsule (Azo Bladder Control) simvastatin 20 mg tablet 20 mg PO QPM 03/08/22 06/15/22 valsartan 320 mg tablet 320 mg PO DAILY 03/08/22 06/15/22 vitamin B complex (B-Complex 1 tab PO QPM 03/08/22 06/15/22 tablet) Previous Rx's Medication Instructions Recorded acetaminophen 500 mg tablet 1,000 mg PO Q8H PRN pain #90 tabs 10/07/18 clobetasol-emollient 0.05 % 1 applic topical .COMPLEX #45 grams 11/06/21 topical cream valacyclovir 500 mg tablet 500 mg PO BID #20 tabs 02/21/22 (Valtrex) Allergies Allergy/AdvReac Type Severity Reaction Status Date / Time levofloxacin [From Levaquin] Allergy Severe Other (See Verified 06/15/22 09:26 Comment) nifedipine [From Procardia] Allergy Intermediate rash Unverified 06/15/22 09:26 Penicillins Allergy Intermediate Skin Rash Unverified 06/15/22 09:26 hydrochlorothiazide AdvReac Intermediate peeling Unverified 06/15/22 09:26 [From Aldactazide] nipples potassium chloride AdvReac Intermediate swelling Unverified 06/15/22 09:26 feet and ankles prednisone AdvReac Intermediate phlebitis Unverified 06/15/22 09:26 spironolactone AdvReac Intermediate peeling Unverified 06/15/22 09:26 [From Aldactazide] nipples General Stated Complaint: RespSymp OLIVER: 3 Review of Systems All systems reviewed & are unremarkable except as noted in HPI and below PFSH All Active Problems (Updated 08/25/22 @ 07:43 by Oniel Lopez DO) Atrial fibrillation with rapid ventricular response (Acute) Abscess of buttock (Acute) Medical History ASCUS with positive high risk HPV colop directed bx 05/05/14 Atrophic vaginitis On vaginal E2 Diabetes mellitus (12/16/13) Essential hypertension Full thickness rotator cuff tear Gout (12/16/13) History of cervical dysplasia HSV (herpes simplex virus) infection 08/19/2020. HSV-1 Rx with Valtrex. genital outbreak February 2022 - tx with valtrex Hyperlipidemia Lichen sclerosus et atrophicus (12/16/13) Episodic topical clobetasol Osteopenia Rotator cuff tear arthropathy of left shoulder (~01/2019) Rupture of left long head biceps tendon (Unknown) Sexually transmitted disease exposure Shingles 09/2020. On forehead. Treated successfully with valacyclovir. No optic involvement. Surgical History Colonoscopy - IV Sedation 2005 Ligation of fallopian tube mastoidectomy as a child Tear of left rotator cuff (06/03/18) W/C. S/P Repair on 10/07/18 Tonsillectomy as a child varicose vein stripping 1967 and 1979 Social History Smoking/Tobacco Use Status: Never Smoking risk assessment performed?: Yes Alcohol Intake: current Drug use: Never Substance use type: does not use Household members: other Details: , lives close by. Has boyfriend. 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 Do you feel safe at home: Yes Do you feel safe in your relationship?: Yes Exam Narrative Exam Narrative: 1.Const: Well-nourished, Well-developed, appearing stated age 2.Eyes: PERRL, no conjunctival injection, and symmetrical lids. 3.ENT: Atraumatic external nose and ears. Moist MM. Neck: Symmetric, trachea midline, No thyromegaly. 4.CVS: +S1/S2, No murmurs or gallops. Peripheral pulses 2+ and equal in all extremities. Brisk capillary refill in all extremities. 5.RESP: Unlabored respiratory effort. Clear to auscultation bilaterally. No wheezes rales or rhonchi 6.GI: Soft, Nontender/Nondistended, No hepatosplenomegaly. No guarding or rebound. 7.MSK: Normocephalic/Atraumatic, Extremities w/o deformity or ttp No cyanosis or clubbing, Normal movement of all extremities, no calf tenderness 8.Skin: Warm, Dry. No rashes or lesions. 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 Sensation grossly intact, no focal neurologic deficits. 10.Psych: (AAO) x3. Appropriate mood and affect Course Vital Signs Vital signs: Vital Signs Temperature 36.6 C 08/25/22 06:38 Pulse 150 H 08/25/22 06:38 Respiratory Rate 20 08/25/22 06:38 Blood Pressure 164/99 H 08/25/22 06:38 Pulse Oximetry 98 08/25/22 06:38 Temperature 36.6 C 08/25/22 06:38 Pulse 150 H 08/25/22 06:38 Respiratory Rate 20 08/25/22 06:38 Respiratory Effort 08/25/22 06:43 Blood Pressure 164/99 H 08/25/22 06:38 Pulse Oximetry 98 08/25/22 06:38 Oxygen Delivery Method Room Air 08/25/22 06:38 Oxygen Flow Rate 0 08/25/22 06:38 PAWSS Have you Been Recently Intoxicated or Drunk Within the Last 30 days?: No Have you Ever Experienced Previous Episodes of Alcohol Withdrawal?: No Have you ever Experienced Withdrawal Seizures?: No Have you ever Experienced Delirium Tremens(DT)s?: No Have you ever undergone Alcohol Rehabilitation Treatment (i.e, inpt ot outpatient treatment programs)?: No Have you ever Experienced Blackouts?: No Have you ever Combined Alcohol with other Downers within the last 90 days?: No Have you ever Combined Alcohol with any other Substance of Abuse during the last 90 days?: No Positive Blood Alcohol level on Presentation? [PCS.BAL]: No Evidence of Increased Autonomic Activity (i.e. HR>120, tremor, sweating, agitation, nausea)?: No Result: 0
[2022-08-25] MEDS: Normal Saline 1,000 ML 1000 ML IV (07:08)
[2022-08-25] MEDS: Metoprolol 5 MG/5 ML VIAL 10 MG IVP (07:08)
--- NOTE | 2022-08-25 07:15 | RT.EKG_ITS ---
APPROVED REPORT Exam: Resting ECG Reason for Exam: reassess after medication Patient Location: E HR:101 bpm ECG Measurements Heart Rate 101 AXIS [place] [id number] P [id number] QRSd 85 QRS 90 QT 381 T 135 QTc 495 Conclusion Atrial fibrillation...V-rate 71-126, irreg A-activity Nonspecific T abnormalities, lateral leads...T <-0.10mV, I aVL V5 V6 PHysician: ST depressions have notably improved in the lateral leads, no elevation, rate improved
[2022-08-25 07:16] LABS: PTT Activated 24.1 sec (21.0-27.5)
[2022-08-25 07:31] LABS: ALT 22 U/L (14-59); AST 26 U/L (15-37); Albumin 4.1 g/dL (3.4-5.0); Alkaline Phosphatase 66 U/L (46-116); Anion Gap 11.5 mmol/L (3-11); BUN 19 mg/dL (7-18); Bilirubin, Total 0.5 mg/dL (0.2-1.0); CO2 26.5 mmol/L (21.0-32.0); CREATININE 0.8 mg/dL (0.55-1.02); Calcium 9.7 mg/dL (8.5-10.1); Chloride 99 mmol/L (98-107); Estimated GFR 75.84 (mL/min/1.73m2); Glucose 174 mg/dL (74-106); NT-proBNP 3014 pg/mL (<300); Potassium 3.5 mmol/L (3.5-5.1); Sodium 137 mmol/L (136-145); TSH (W/Ref FT4) 1.25 uIU/mL (0.36-3.74)
[2022-08-25 07:34] LABS: Troponin I 252 ng/L (<or=60)
[2022-08-25 07:43] LABS: D-Dimer 1681 ng/mlFEU (<500)
--- NOTE | 2022-08-25 07:45 | DI.CT_ITS ---
Exam(s) CT CHEST PE CTA EXAM: CT CHEST PE CTA CLINICAL HISTORY: new afib, elevated dimer, r/o PE. TECHNIQUE: Imaging Protocol: Axial CT angiography was performed with multi-slice acquisition and mu lti-planar and/or 3D reconstructions. CONTRAST MATERIAL: Intravenous: Omnipaque 350 contrast volume:100 mL COMPARISON: CR,XR XR PORTABLE CHEST AP from 08/25/2022 FINDINGS: Tracheobronchial tree: Patent where visualized. There is bilateral peribronchial thickening. Pulmonary parenchyma: There are peribronchial ground-glass infiltrates. No focal consolidating infil trates are present. No architectural distortion. Pulmonary Arteries: No evidence of filling defect to suggest pulmonary emboli. Mediastinum and Pratibha: Mildly prominent mediastinal and right hilar lymph nodes. Visualized thyroid gland: Unremarkable. Pleura: There appears to be a small right pleural effusion. No left pleural effusion. No pneumothor ax. Heart: There is mild cardiomegaly. Coronary artery calcifications are present. No pericardial effus ion. Aorta: Thoracic aorta non-dilated. Bolus timing is inadequate for evaluation of aortic dissection. A therosclerosis is present. Upper abdomen: Unremarkable. Soft tissues: Unremarkable. Bones: Within normal limits for the patient's age. IMPRESSION: 1. No evidence of pulmonary embolism or thoracic aortic aneurysm. 2. Cardiomegaly with small right pleural effusion. Small ground-glass opacities are seen likely rela milad to pulmonary edema. Pneumonia cannot be excluded. 3. Diffuse bronchial wall thickening which may represent bronchitis or asthma. RADIATION DOSE DELIVERED: 269.22mGy.cm Total DLP DATA REPOSITORY: All CT scans at this facility are submitted to the National Radiology Data Registry (NRDR) Dose Index Registry (DIR) with the [employer] (ACR). RADIATION OPTIMIZATION: All CT scans at this facility use at least one of these dose optimization te chniques: automated exposure control; mA and/or kV adjustment per patient size (includes targeted exa ms where dose is matched to clinical indication); or iterative reconstruction.
[2022-08-25 07:50] LABS: Bilirubin Negative (Negative); Blood Negative (Negative); Clarity Clear (Clear); Glucose Negative (Negative); Ketones Negative (Negative); Leukocyte Esterase Negative (Negative); Nitrite Negative (Negative); Specific Gravity 1.015 (1.005-1.025); Urobilinogen 0.2 EU/dL (Up TO 0.2); pH 5.5 (5-8)
[2022-08-25] MEDS: Aspirin 325 MG TAB PO (07:55)
[2022-08-25] MEDS: Normal Saline Flush 10 ML SYR IVP (07:57)
[2022-08-25] MEDS: Omnipaque 350 MG/ML 100 ML BTL IJ (08:06)
[2022-08-25] MEDS: Normal Saline - Diluent 50 ML VIAL IJ (08:08)
--- NOTE | 2022-08-25 08:45 | DI.VRAD_ITS ---
PROCEDURE INFORMATION: Exam: XR Chest Exam date and time: 08/25/2022 6:35 AM Age: 77 years old Clinical indication: Shortness of breath and tachypnea and other: A-fib TECHNIQUE: Imaging protocol: Radiologic exam of the chest. Views: 1 view. COMPARISON: MRI LEFT SHOULDER 02/02/2019 1:55 PM FINDINGS: Lungs: Pulmonary vascular and interstitial prominence. Pleural spaces: Unremarkable. No pleural effusion. No pneumothorax. Heart/Mediastinum: Probable cardiomegaly. Bones/joints: Degenerative changes of the visualized skeleton. IMPRESSION: Cardiomegaly with probable early edema. Dictated and Authenticated by: Bari Anderson MD. Ordering:RIK Engle MD
--- NOTE | 2022-08-25 08:48 | DI.VRAD_ITS ---
PROCEDURE INFORMATION: Exam: CTA Chest With Contrast Exam date and time: 08/25/2022 7:59 AM Age: 77 years old Clinical indication: Abnormal findings; Other: A-fib, elevated d-dimer TECHNIQUE: Imaging protocol: Computed tomographic angiography of the chest with contrast. 3D rendering (Not supervised by radiologist): MIP and/or 3D reconstructed images were created by the technologist. Radiation optimization: All CT scans at this facility use at least one of these dose optimization techniques: automated exposure control; mA and/or kV adjustment per patient size (includes targeted exams where dose is matched to clinical indication); or iterative reconstruction. Contrast material: OMNIPAQUE 350; Contrast volume: 100 ml; Contrast route: INTRAVENOUS (IV); COMPARISON: CR XR PORTABLE CHEST AP 08/25/2022 6:35 AM FINDINGS: Pulmonary arteries: Normal. No pulmonary emboli. Aorta: Unremarkable. No aortic aneurysm. No aortic dissection. Lungs: Diffuse bronchial wall thickening may represent bronchitis or asthma. Interlobular septal thickening of the lung bases, worrisome for edema. Scattered patchy and ground-glass bilateral airspace opacities. Pleural spaces: Small right pleural effusion. Heart: Cardiomegaly. Mitral annular calcifications. Aortic valvular calcifications. Coronary arteries: Moderate coronary arterial calcification, indicating the presence of coronary artery disease. Lymph nodes: Prominent mediastinal and right hilar lymph nodes. Pancreas: Pancreatic steatosis and volume loss. Stomach and bowel: Scattered air in the esophagus, possibly from reflux. Moderate stool throughout the visualized colon. Bones/joints: Degenerative changes of the visualized skeleton. Soft tissues: Unremarkable. IMPRESSION: 1. No evidence of pulmonary embolism. 2. Cardiomegaly with edema and a small right pleural effusion. Scattered airspace opacities are felt to be likely related to edema. Superimposed pneumonia remains within the differential. 3. Pancreatic steatosis and volume loss. 4. Diffuse bronchial wall thickening may represent bronchitis or asthma. 5. Moderate coronary arterial calcification, indicating the presence of coronary artery disease. If the patient has associated symptoms recommend management as per chest pain guidelines. If the patient is asymptomatic consider reviewing modifiable cardiovascular risk factors and managing as per guidelines for primary prevention. Dictated and Authenticated by: Bari Anderson MD. Ordering:RIK Engle MD
[2022-08-25] MEDS: Normal Saline 500 ML 1000 ML IV (08:54)
[2022-08-25] MEDS: LORazepam 2 MG/ML VIAL 1 MG IVP (08:56)
[2022-08-25] MEDS: Furosemide 40 MG/4 ML VIAL (09:18)
--- NOTE | 2022-08-25 09:19 | ED.PROG_ITS ---
Date of service: 08/25/22 Time of Service: 09:19 Medical Decision Making A. fib RVR, initially was rate controlled in the 90s to low 100s, however after CT chest patient returned tachycardic to the 130s and 140s, mild dry cough as well as anxiety and shortness of breath, consider reaction to contrast versus component of pulmonary edema, bedside ultrasound showing bilateral diffuse B- lines without effusion consistent with pulmonary edema. Fluids were stopped. Patient started on Lasix. Given anxiolysis will observe closely for response to diuresis. Will consider adding diltiazem for rate control if persistently tachycardic. Trending troponin elevation likely related to rate however must consider ACS triggering A. fib and pulmonary edema/CHF. Likely admission 10: 57 patient resting comfortably, a couple episodes of desaturation to the high 80s low 90s was placed on 1 L nasal cannula, bedside ultrasound showing B- lines, was given 40 mg IV Lasix starting 30s currently, maintaining her blood pressure, persistently tachycardic A. fib RVR, was able to wean off of nasal cannula now 92% on room air, heart rate 1 27-1 35, dosing diltiazem 15 mg IV. Discussed admission versus home with close follow-up, pending rate control and respiratory and hemodynamic status. 13: 50 patient resting comfortably no respiratory distress completely off of oxygen 97% on room air diuresed over 1 L of urine. Feeling better. Persistently tachycardic to the 120s. Will attempt a second bolus of diltiazem now with 20 mg IV. If unable to rate control will admit for further management. Patient really would like to go home I am okay with this if we can control her rate and I have discussed extensively the idea of starting anticoagulation given a [id number] score of 4 points. 14: 57 downtrending troponin no chest pain, elevated Trope likely related to rate, earlier evidence of fluid overload now weaned off oxygen; no chest pain or respiratory symptoms. Rate controlled in the 90s after second bolus of diltiazem. Given elevated [id number] score patient will be started on Eliquis. Counseled follow closely with a primary care physician early next week for further cardiac referral. Given strict return precautions for any worsening symptoms. Discharge Plan Disposition Patient Disposition: Home Condition: Improving Discharge Details Clinical Impression: Atrial fibrillation with rapid ventricular response Primary Care Provider: Sonal Nieto ED Provider: Hiren Phillip Home Meds and New Rx's Prescriptions: New Eliquis 5 mg tablet 5 mg PO BID 30 Days Qty: 60 0RF No Action insulin glargine [Lantus Solostar U-100 Insulin] 100 unit/mL (3 mL) insulin pen 27 unit subcut QHS metoprolol succinate 50 mg tablet extended release 24 hr 50 mg PO BID estradiol 0.01 % (0.1 mg/gram) cream 1 g VG .twice a week valsartan 320 mg tablet 320 mg PO DAILY simvastatin 20 mg tablet 20 mg PO QPM lysine 1,000 MG tablet 1,000 mg PO DAILY Cranberry Concentrate 1 EACH capsule 2 ea PO BID Label Comments: BID amlodipine 5 MG tablet 5 mg PO HS calcium carbonate-vitamin D3 1 EACH tablet 1 tab PO BID Centrum Silver 1 EACH tablet 1 ea PO DAILY dorzolamide-timolol 10 ML drops 1 drp Ophthalmic BID glipizide [Glucotrol XL] 10 mg tablet extended release 24hr 10 mg PO BID clobetasol-emollient 0.05 % cream 1 applic TP .COMPLEX Qty: 45 5RF Rx Instructions: apply tiny amount to vulva daily for 2w, then twice weekly ascorbate calcium (vitamin C) 500 mg tablet 1 g PO BID Label Comments: BID cinnamon bark 500 mg capsule 500 mg PO BID Label Comments: BID latanoprost [Xalatan] 0.005 % drops 1 drp Ophthalmic QHS Label Comments: one drop in each eye Azo Bladder Control 300 mg capsule PO BID vitamin B complex [B-Complex] Tablet 1 tab PO QPM Label Comments: at suppertime acetaminophen 500 mg tablet 1,000 mg PO Q8H PRN (Reason: pain) Qty: 90 3RF cholecalciferol (vitamin D3) [Vitamin D3] 10 mcg (400 unit) tablet 2,000 unit PO BID Discharge Instructions Instructions: A-fib (Atrial Fibrillation) (ED) Additional Instructions: Please follow-up Saturday or Saturday with your primary care physician. We will also send a referral to cardiology for close follow-up. Please return to the emergency department for any worsening symptoms
[2022-08-25 10:35] LABS: Troponin I 197 ng/L (<or=60)
[2022-08-25] MEDS: dilTIAZem 25 MG/5 ML VIAL 15 MG IVP (11:12)
[2022-08-25] MEDS: dilTIAZem 25 MG/5 ML VIAL 20 MG IVP (14:13)
--- NOTE | 2022-08-25 14:45 | RT.EKG_ITS ---
APPROVED REPORT Exam: Resting ECG Reason for Exam: afib, rate and rhythm, check Patient Location: E HR:109 bpm ECG Measurements Heart Rate 109 AXIS MO [id number] P [id number] QRSd 81 QRS 75 QT 369 T 146 QTc 498 Conclusion Atrial fibrillation...V-rate 86-130, irreg A-activity Nonspecific T abnormalities, lateral leads...T <-0.10mV, I aVL V5 V6 afib rvr., normal axis, t wave inversion V5-V6
[2022-08-25] MEDS: Apixaban 5 MG TAB PO (15:07)
== END 2022-08-25 15:19 | disposition home or self-care (01) ==
PROVIDERS: Student in an Organized Health Care Education/Training Program; Emergency Provider Emergency Medicine; PCP Family Medicine
DX: I48.91 Unspecified atrial fibrillation (principal); I10 Essential (primary) hypertension; E11.9 Type 2 diabetes mellitus without complications; Z79.51 Long term (current) use of inhaled steroids
CPT/HCPCS: 71275; 80053; 93005; 96361; 96374; 96375; 96376; 99285; 71045; 81003; 83880; 84443; 84484; 85025; 85379; 85610; 85730; 93010; J1940; J2060; J3490

== ENCOUNTER → 2022-09-04 09:50 | Outpatient (CLI) | payer MEDICARE, SELFPAY | LOC: CARDOPNVT 09:50 | PROVIDERS: PCP Family Medicine; Visit Provider Family Medicine | DX: I48.91 Unspecified atrial fibrillation (principal) | CPT/HCPCS: 93246 ==

== ENCOUNTER 2022-09-27 08:03 | Outpatient (CLI) | payer MEDICARE, SELFPAY ==
--- NOTE | 2022-09-27 12:17 | W.CARDEVENT ---
Date of service: 09/27/22 Time of Service: 12:17 Cardiac Event Recorder Referring Provider:: Sonal Nieto Indications:: atrial fibrillation Cardiac Event Note: This is a 14-day ticket speculator ordered for atrial fibrillation Atrial fibrillation was present throughout with an average heart rate of 85. Minimum was 74, maximum 156. Rate was controlled 96% of the time There were rare ventricular ectopic beats No patient's symptoms were reported
== END 2022-09-27 08:04 | disposition home or self-care (01) ==
LOC: CARDOPNVT 08:03
PROVIDERS: PCP Family Medicine; Visit Provider Internal Medicine Cardiovascular Disease
DX: I48.91 Unspecified atrial fibrillation (principal)
CPT/HCPCS: 93248

== ENCOUNTER 2022-10-10 01:46 | Outpatient (CLI) | payer MEDICARE, SELFPAY ==
--- NOTE | 2022-10-10 15:00 | DI.US_ITS ---
APPROVED REPORT EXAM: Comprehensive 2D, Doppler, and color-flow Echocardiogram Patient Location: Out-Patient Bottle Hop: Kaity Epps RDCS (AE) Indications: A Fib Other Information Study Quality: Adequate Conclusion Normal left ventricular wall thickness and chamber size. Estimated ejection fraction is 55 to 60%. Wall motion is normal Normal right ventricular size and systolic function Both atria are mildly dilated Aortic valve is trileaflet, mildly sclerotic without stenosis or regurgitation Mitral annular calcification, mild to moderate mitral regurgitation Normal tricuspid valve with moderate regurgitation. Estimated right ventricular systolic pressure is 34 mmHg Wall motion Left Ventricle The left ventricle is normal size. The left ventricular systolic function is normal. The left ventric ular ejection fraction is within the normal range. There is normal left ventricular wall thickness. T here is normal LV segmental wall motion. There is no ventricular septal defect visualized. LVEF is 57 %. Right Ventricle The right ventricle is normal size. The right ventricular systolic function is normal. Atria Left atrium is mildly dilated. Right atrium is mildly dilated. The atrial septum is aneurysmal. Aortic Valve The aortic valve is mildly sclerotic Aortic valve is trileaflet. There is no aortic valvular stenosis . No aortic regurgitation is present. Mitral Valve Moderate mitral annular calcification. No evidence of mitral valve stenosis. Mild to moderate mitral regurgitation. Tricuspid Valve The tricuspid valve is normal in structure. There is no tricuspid valve stenosis. Moderate tricuspid regurgitation. Pulmonic Valve The pulmonary valve is normal in structure. There is no pulmonic valvular stenosis. Trace pulmonic re gurgitation. Great Vessels The aortic root is normal in size. The ascending aorta is normal in size. Aortic arch is normal in ca liber. IVC is normal in size and collapses >50% with inspiration. Pericardium There is no pericardial effusion. 2D Dimensions IVSD d PLAX 0.93 cm F: 0.6-1.0 LV Vol A2C d MOD 80.4 mL LVPW d PLAX 0.96 cm F: 0.6 - 1.0 LV Vol A4C d MOD 87.9 mL LVID d PLAX 4.20 cm F: 3.8 - 5.2 LA vol/ BSA A2C s A-L 30.7 mL/m2 LVDs 2.90 cm F: 2.2 - 3.5 LA vol/ BSA A4C s A-L 25.0 mL/m2 Ao Root d 2.72 cm F: 2.7 - 3.3 LA Vol/ BSA Biplane s A-L 28.0 mL/m2 RA Area A4C 17.46 cm2 LA Area A4C s MOD 15.37 cm2 RA Vol/ BSA A4C s A-L 33.0 mL/m2 LA Area A2C s MOD 16.89 cm2 Ao Asc Diam d 3.27 cm F: 2.3 - 3.1 LV EF A4C MOD 58.7 % LV EF Teichholz 58.3 % LV EF A2C MOD 56.1 % LVEF (Benoit's) 56.42 % F: 54 - 74 LV EF Biplane MOD 56.4 % LV Volume 69.59 mL F: 46 - 106 SV 48.01 mL LV Volume Index 44.32 mL/m2 F: 29 - 61 SV Index 30.52 mL/m2 LV Vol Biplane MOD 85.1 mL FS 30.45 % M-Mode TAPSE 1.64 cm (M/F) >1.7 LV Diastology MV E' lateral 0.123 (>0.1 m/s) MV E Vmax 1.17 (0.4-1.3 m/s) LV E/e LAT 9.40 (<14) MV E/E' lateral 9.45 Aortic Valve LVOT Area 2.92 cm2 AoV Area Vmax 2.01 cm2 LVOT Vmax 0.84 m/s AoV Area/ BSA (Vmax) 1.28 cm2/m2 LVOT Mean Collins. 0.54 m/s JOSE Mean Collins. 1.81 cm2 LVOT Peak Grad 2.8 mmHg JOSE Mean Collins. Index 1.15 cm2/m2 LVOT Mean Grad 1.4 mmHg LVOT VTI 0.153 m LVOT Diam s 1.90 cm AoV Vmax 1.22 m/s Velocity Ratio 0.69 AoV Mean Collins. 0.87 m/s AoV Peak Grad 5.9 mmHg LVOT SV 44.71 mL AoV Mean Grad 3.4 mmHg AoV VTI 0.221 m AoV Area VTI 2.02 cm2 AoV Area/ BSA (VTI) 1.29 cm/m2 Mitral Valve MV DT 172 (160-240 msec) MR Vmax 4.99 m/s MV PHT 50 msec MR VTI 1.432 m MV Area PHT 4.41 cm2 MR Peak Grad 99.5 mmHg MV VTI 0.268 m MR Mean Grad 66.6 mmHg MV VTI Annulus 0.272 m MV Area VTI 1.69 (4.0-6.0 cm2) Pulmonary Valve PV Vmax 0.86 (0.5-1.5 m/s) RVOT Peak Gr. 1.90 mmHg PV Peak Grad 3.0 mmHg RVOT Mean Gr. 0.95 mmHg PV Mean Grad 1.6 mmHg RVOT VTI 0.123 m PV VTI 0.157 m RVOT Vmax 0.69 m/s Tricuspid Valve TR Peak Grad 31.0 mmHg TR Vmax 2.79 m/s RA Pressure 3.00 mmHg RVSP (TR) 34.1 mmHg
== END 2022-10-10 02:06 ==
PROVIDERS: PCP Family Medicine; Visit Provider Family Medicine
DX: I48.0 Paroxysmal atrial fibrillation (principal)
CPT/HCPCS: 93306

== ENCOUNTER 2022-10-16 10:45 | Outpatient (CLI) | payer MEDICARE, SELFPAY ==
--- NOTE | 2022-10-16 10:45 | RT.EKG_ITS ---
APPROVED REPORT Exam: Resting ECG Reason for Exam: afib Patient Location: O HR:87 bpm ECG Measurements Heart Rate 87 AXIS WI [id number] P [id number] QRSd 117 QRS 62 QT 376 T 88 QTc 453 Conclusion Atrial fibrillation...? atrial activity Nonspecific T abnormalities, lateral leads...T <-0.10mV, I aVL V5 V6
== END 2022-10-16 10:46 | disposition home or self-care (01) ==
LOC: DI.CARD 10:46
PROVIDERS: PCP Family Medicine; Visit Provider Internal Medicine Cardiovascular Disease
DX: I48.20 Chronic atrial fibrillation, unspecified (principal)
CPT/HCPCS: 93010

== ENCOUNTER → 2022-10-16 12:34 | Outpatient (BNVA) | payer MEDICARE, SELFPAY | PROVIDERS: PCP Family Medicine; Referring Provider Family Medicine; Visit Provider Internal Medicine Cardiovascular Disease | DX: I48.91 Unspecified atrial fibrillation (principal) | CPT/HCPCS: 93005; 99202; 99214 ==

== ENCOUNTER 2022-11-02 01:31 | Outpatient (CLI) | payer MEDICARE, SELFPAY ==
--- NOTE | 2022-11-02 | DI.DEXA_ITS ---
Exam(s) XR DEXA BONE DENSITY W/WO MIKE EXAM: XR DEXA BONE DENSITY W/WO MIKE CLINICAL HISTORY: MENOPAUSAL SCREENING, Z78.0 TECHNIQUE: COMPARISON: Comparison is 09/24/2017 FINDINGS: Lateral Spine Image: Unremarkable. No compression deformities identified. Left hip: Total T-Score: -2.2. This is unchanged compared to the prior examination. Total Z-Score: -0.3 T- and Z-scores: Findings are consistent with osteopenia. Lumbar Spine: Total T-Score: 0.2. This compares to 0.1 on the prior examination. Total Z-Score: 2.6 T- and Z-scores: Within normal limits. Note is made of osteopenia in L1 with a T-score of -1.1. IMPRESSION: No evidence of osteoporosis.
== END 2022-11-02 01:51 ==
LOC: DI 01:31
PROVIDERS: PCP Family Medicine; Visit Provider Family Medicine
DX: M85.88 Other specified disorders of bone density and structure, other site (principal); Z78.0 Asymptomatic menopausal state
CPT/HCPCS: 77080

== ENCOUNTER 2022-12-07 18:13 | Outpatient (REF) | payer MEDICARE, SELFPAY ==
[2022-12-07 19:05] LABS: COMMENT (LAB VIEW ONLY) 27.04 mg/dL; Microalb ug/mg Crea 94.7 ug/mg Cr
== END 2022-12-07 18:14 | disposition home or self-care (01) ==
LOC: NCHCN 18:13
PROVIDERS: PCP Family Medicine; Visit Provider Family Medicine
DX: E11.65 Type 2 diabetes mellitus with hyperglycemia (principal)
CPT/HCPCS: 82043; 82570

== ENCOUNTER 2023-01-16 03:05 | Outpatient (CLI) | payer MEDICARE, SELFPAY ==
--- NOTE | 2023-01-16 | DI.MAMMO_ITS ---
Exam(s) MAMMO SCREENING EXAM: MAMMO SCREENING CLINICAL HISTORY: SCREENING, Z12.39 TECHNIQUE: Bilateral full field digital CC and MLO mammographic images were obtained with 3D tomosyn thesis and utilizing computer aided detection (CAD). COMPARISON: Available for comparison. FINDINGS: Masses/Architectural Distortion: None seen. Microcalcifications: No suspicious pleomorphic-type are seen. Skin Thickening/Nipple Retraction: None. IMPRESSION: 1. No significant interval change with no specific features of malignancy noted. 2. Unless there is more urgent need, screening mammography is recommended, as per [place] [employer] guidelines. BI-RADS Category 1 - Negative Breast Density - Category B - Scattered areas of fibroglandular density Breast density category C or D implies that the patient has dense breast tissue. Dense breast tissue is very common and is not abnormal but dense breast tissue can make it harder to find cancer on a ma mmogram. Also, dense breast tissue may increase their breast cancer risk. This information about the result of the mammogram report was provided to the patient to raise their awareness. Use this report when you speak with the patient about their risks for breast cancer, which includes their family hist ory. At that time, you may recommend for more screening tests (Ultrasound or MRI) as they might be us eful based on their risk. A negative radiographic report should not delay biopsy if a dominant or clinically suspicious mass is present. Up to ten percent of cancers are not identified on mammography. A negative report may reinforce clinical impression. Adenosis and dense breasts may obscure an underlying neoplasm. False positive reports average 6 to 10%. Patient will receive a letter notifying them of these results.
== END 2023-01-16 03:25 ==
LOC: DI 03:05
PROVIDERS: PCP Family Medicine; Visit Provider Family Medicine
DX: Z12.31 Encounter for screening mammogram for malignant neoplasm of breast (principal)
CPT/HCPCS: 77063; 77067

== ENCOUNTER 2023-07-26 15:42 | Outpatient (REF) | payer MEDICARE, SELFPAY ==
[2023-07-26 19:23] LABS: Anion Gap 5.4 mmol/L (3-11); BUN 9 mg/dL (7-18); CO2 31.6 mmol/L (21.0-32.0); CREATININE 0.8 mg/dL (0.55-1.02); Calcium 9.9 mg/dL (8.5-10.1); Chloride 100 mmol/L (98-107); Estimated GFR 75.37 (mL/min/1.73m2); Glucose 214 mg/dL (74-106); Potassium 3.6 mmol/L (3.5-5.1); Sodium 137 mmol/L (136-145)
== END 2023-07-26 15:43 | disposition home or self-care (01) ==
LOC: NCHCN 15:42
PROVIDERS: PCP Family Medicine; Visit Provider Family Medicine
DX: I10 Essential (primary) hypertension (principal)
CPT/HCPCS: 80048

== ENCOUNTER 2023-10-25 12:45 | Outpatient (REF) | payer MEDICARE, SELFPAY ==
[2023-10-25 19:37] LABS: Hemoglobin A1C 9.7 % (<5.7)
== END 2023-10-25 12:46 | disposition home or self-care (01) ==
LOC: NCHCN 12:45
PROVIDERS: PCP Family Medicine; Visit Provider Family Medicine
DX: E11.9 Type 2 diabetes mellitus without complications (principal)
CPT/HCPCS: 83036

== ENCOUNTER 2024-02-05 18:55 | Outpatient (REF) | payer MEDICARE, SELFPAY ==
[2024-02-05 20:58] LABS: COMMENT (LAB VIEW ONLY) 26.56 mg/dL
[2024-02-05 21:03] LABS: Microalb ug/mg Crea 128.8 ug/mg Cr
== END 2024-02-05 18:56 | disposition home or self-care (01) ==
LOC: NCHCN 18:55
PROVIDERS: PCP Family Medicine; Visit Provider Family Medicine
DX: E11.9 Type 2 diabetes mellitus without complications (principal)
CPT/HCPCS: 82043; 82570

== ENCOUNTER → 2024-02-19 00:16 | Outpatient (CLI) | payer MEDICARE, SELFPAY ==
--- NOTE | 2024-02-19 | DI.MAMMO_ITS ---
Exam(s) MAMMO SCREENING EXAM: MAMMO SCREENING CLINICAL HISTORY: SCREENING, Z12.31 TECHNIQUE: Mammograms were interpreted according to the usual protocol including computer analysis w [employer] CAD system, tomosynthesis and C-view imaging. COMPARISON: 2014 through 2022 FINDINGS: The breasts are composed of scattered fibroglandular densities, Breast Density category B. No suspicious masses or suspicious microcalcifications are seen. No skin thickening or abnormal axillary lymph nodes are seen. There has been no significant change from prior exams. IMPRESSION: BI-RADS Category 1, Negative mammogram Yearly screening mammography is recommended. Breast Density - Category B, scattered fibroglandular densities. A negative radiographic report should not delay biopsy if a dominant or clinically suspicious mass is present. Up to ten percent of cancers are not identified on mammography. A negative report may reinforce clinical impression. Adenosis and dense breasts may obscure an underlying neoplasm. False positive reports average 6 to 10%. Patient will receive a letter notifying them of these results.
== END ==
PROVIDERS: PCP Family Medicine; Visit Provider Family Medicine
DX: Z12.31 Encounter for screening mammogram for malignant neoplasm of breast (principal)
CPT/HCPCS: 77063; 77067

== ENCOUNTER 2024-10-09 11:50 | Outpatient (REF) | payer MEDICARE, SELFPAY ==
[2024-10-09 16:03] LABS: HCT 39.1 % (36.0-46.0); HGB 12.9 g/dL (11.2-15.7); MCH 30.9 pg (27.0-33.0); MCV 94 fL (80-95); MPV 11.7 fL (8.0-11.0); Platelet Count 201 10^3/uL (130-400); RBC 4.17 10^6/uL (3.93-5.22); RDW 12.4 % (11.7-14.6); RDW-SD 43.2 fL; WBC 4.99 10^3/uL (4.4-10.8)
[2024-10-09 16:23] LABS: ALT 23 U/L (14-59); AST 17 U/L (15-37); Albumin 3.9 g/dL (3.4-5.0); Alkaline Phosphatase 52 U/L (46-116); Anion Gap 7.2 mmol/L (3-11); BUN 12 mg/dL (7-18); Bilirubin, Total 0.71 mg/dL (0.2-1.0); CO2 29.8 mmol/L (21.0-32.0); CREATININE 0.8 mg/dL (0.55-1.02); Chloride 104 mmol/L (98-107); Glucose 157 mg/dL (74-106); Potassium 4.3 mmol/L (3.5-5.1); Sodium 141 mmol/L (136-145); Total Protein 7.5 g/dL (6.4-8.2)
== END 2024-10-09 11:51 | disposition home or self-care (01) ==
LOC: NCHCN 11:50
PROVIDERS: PCP Family Medicine; Visit Provider Family Medicine
DX: I10 Essential (primary) hypertension (principal)
CPT/HCPCS: 80053; 85027

== ENCOUNTER 2025-05-31 13:21 | Outpatient (REF) | payer MEDICARE, SELFPAY ==
[2025-05-31 15:45] LABS: COMMENT (LAB VIEW ONLY) 106.90 mg/dL; Microalb ug/mg Crea 34.5 ug/mg Cr
== END 2025-05-31 13:22 | disposition home or self-care (01) ==
LOC: NCHCN 13:21
PROVIDERS: PCP Family Medicine; Visit Provider Family Medicine
DX: E11.9 Type 2 diabetes mellitus without complications (principal)
CPT/HCPCS: 82043; 82570

== ENCOUNTER 2025-06-03 03:48 | Outpatient (CLI) | payer MEDICARE, SELFPAY ==
--- NOTE | 2025-06-03 | DI.MAMMO_ITS ---
Exam(s) MAMMO SCREENING EXAM: MAMMO SCREENING CLINICAL HISTORY: SCREENING, Z12.31 TECHNIQUE: Bilateral full field digital CC and MLO mammographic images were obtained with 3D tomosynthesis and utilizing computer aided detection (CAD). COMPARISON: Comparison is made with prior examinations. FINDINGS: Masses/Architectural Distortion: There is a new 3 mm well-circumscribed nodule in the medial left breast on the craniocaudad view 4 cm from the nipple. There are no areas of architectural distortion. Microcalcifications: No suspicious pleomorphic-type are seen. Skin Thickening/Nipple Retraction: None. IMPRESSION: 1. New 3 mm left breast nodule on the craniocaudad view. 2. This should be further evaluated with a spot compression view. Ultrasound may be indicated at that time. BI-RADS Category 0 - Incomplete: Need additional imaging evaluation Breast Density - Category B - There are scattered areas of fibroglandular density. Breast density Category C or D implies that the patient has dense breast tissue. Dense breast tissue can make it harder to find cancer on a mammogram. Dense breast tissue is also associated with an increased risk of breast cancer. This information about the result of the mammogram report was provided to the patient to raise their awareness. Use this report when you speak with the patient about their risks for breast cancer, which includes their family history. At that time, you may recommend additional screening tests (Ultrasound or MRI) as these tests may add significant information. A negative radiographic report should not delay biopsy if a dominant or clinically suspicious mass is present. Up to ten percent of cancers are not identified on mammography. A negative report may reinforce clinical impression. Adenosis and dense breasts may obscure an underlying neoplasm. False positive reports average 6 to 10%. Patient will receive a letter notifying them of these results.
--- NOTE | 2025-06-03 | DI.DEXA_ITS ---
Exam(s) XR DEXA BONE DENSITY W/WO MIKE EXAM: XR DEXA BONE DENSITY W/WO MIKE CLINICAL HISTORY: SCREENING FOR OSTEOPOROSIS, Z78.0, ASYMPTOMATIC MENOPAUSAL STATE TECHNIQUE: COMPARISON: CR XR DEXA BONE DENSITY W/WO MIKE from 11/02/2022 FINDINGS: Lateral Spine Image: Unremarkable. No compression deformities identified. Left hip: Total T-Score: -1.7. This compares to -2.2 on the prior examination. Total Z-Score: 0.4 T- and Z-scores: There is osteoporosis seen in the femoral neck with a T-score of -2.5. This compares to -2.2 on the prior examination. Lumbar Spine: Total T-Score: 1.2. This compares to -0.1 on the prior examination. Total Z-Score: 3.9 T- and Z-scores: Within normal limits. IMPRESSION: Note is made of osteoporosis in the left femoral neck.
== END 2025-06-03 04:08 ==
LOC: DI 03:48
PROVIDERS: PCP Family Medicine; Visit Provider Family Medicine
DX: Z78.0 Asymptomatic menopausal state (principal)
CPT/HCPCS: 77063; 77067; 77080

== ENCOUNTER 2025-06-09 01:26 | Outpatient (CLI) | payer MEDICARE, SELFPAY ==
--- NOTE | 2025-06-09 | DI.MAMMO_ITS ---
Exam(s) MG MAMMO SCREEN CALL BACK UNI US BREAST LT COMPLETE EXAM: MG MAMMO SCREEN CALL BACK UNI-LEFT AND COMPLETE LEFT BREAST ULTRASOUND CLINICAL HISTORY: NEW 3MM LT BREAST NODULE R92.8 ABNL MAMMO. TECHNIQUE: Unilateral LEFT BREAST spot mammographic images obtained with 3D tomosynthesisand utilizing computer aided detection (CAD). . Complete LEFT breast Ultrasound was also performed, including all 4 quadrants, the retroareolar region, and the ipsilateral axilla. COMPARISON: Prior mammograms were reviewed. This additional imaging was performed due to findings described on the recent screening mammogram of 06/03/2025. FINDINGS: DIAGNOSTIC MAMMOGRAM: Additional mammographic views performed todaydoes not dissipate this small nodule Proceeded with ultrasound COMPLETE LEFT BREAST ULTRASOUND: Ultrasound performed today reveals no evidence of solid or significant cystic lesions in all 4 quadrants.. This implies that the small nodule may be benign mammary lymph node. Scanning of the ipsilateral axilla reveals no significant adenopathy. IMPRESSION: 1. The mammographically visible small nodule in the medial aspect of the left breast is not seen on ultrasound. It may represent a benign intramammary lymph node. Appropriate follow-up as discussed by myself with the patient today is repeat left breast mammogram in 6 months, with earlier imaging if a self detected breast change is noted. The patient was informed of these findings and recommendations by myself prior to leaving the department today. BI-RADS Category 3 - 6 month - Probably Benign Finding: Recommend follow-up mammography in 6 months Breast Density - Category B - There are scattered areas of fibroglandular density. Breast density Category C or D implies that the patient has dense breast tissue. Dense breast tissue can make it harder to find cancer on a mammogram. Dense breast tissue is also associated with an increased risk of breast cancer. This information about the result of the mammogram report was provided to the patient to raise their awareness. Use this report when you speak with the patient about their risks for breast cancer, which includes their family history. At that time, you may recommend additional screening tests (Ultrasound or MRI) as these tests may add significant information. A negative radiographic report should not delay biopsy if a dominant or clinically suspicious mass is present. Up to ten percent of cancers are not identified on mammography. A negative report may reinforce clinical impression. Adenosis and dense breasts may obscure an underlying neoplasm. False positive reports average 6 to 10%. Patient will receive a letter notifying them of these results.
== END 2025-06-09 01:46 ==
LOC: DI 01:26
PROVIDERS: PCP Family Medicine; Visit Provider Family Medicine
DX: R92.8 Other abnormal and inconclusive findings on diagnostic imaging of breast (principal); Z12.31 Encounter for screening mammogram for malignant neoplasm of breast
CPT/HCPCS: 76642; 77063; 77067

== ENCOUNTER 2025-08-06 14:07 | Outpatient (REF) | payer MEDICARE, SELFPAY ==
[2025-08-06 15:33] LABS: RBC 0-2 HPF (0-2); WBC 0-2 HPF (0-5)
== END 2025-08-06 14:08 | disposition home or self-care (01) ==
LOC: LBN 14:07
PROVIDERS: PCP Family Medicine; Visit Provider Physician Assistant Medical
DX: R39.15 Urgency of urination (principal)
CPT/HCPCS: 81015; 87086